=== PATIENT | female | born 1950 | race Caucasian/White ===

== ENCOUNTER 2016-06-03 17:28 | Observation (INO) | payer OTHER ==
[~2016-06-03] VITALS: Ht 144.8 cm; Wt 69.0 kg
[~2016-06-03 17:28] MED LIST: ACID REDUCER 1150 MG PO; ADVAIR 250/501 DISK IH; ADVAIR HFA120 INHALA IH; ALTACE2.5 MG PO; AMLODIPINE BESYL5 MG PO; ASPIR-TRIN325 M1 PO; Aspirin PO; BACTRIM,SEPT1 TABLET PO; BENICAR; BENICAR40 MG PO; CALCIUM 500 MG1 EACH PO; CILOSTAZOL100 MG PO; CILOSTAZOL50 MG PO; CLEOCIN150 MG PO; CLEOCIN300 MG PO; COLACE100 MG PO; COUMADIN5 MG PO; CRESTOR20 MG PO; CYCLOBENZAPRINE10 MG PO; DOCUSATE SODIU100 MG PO; ECOTRIN325 MG PO; ERGOCALCIF50000 UNIT PO; FAMOTIDINE20 MG PO; FLEXERIL10 MG PO; FLONASE16 G1 BOTH NARES; GLUCAGON1 MG IM; GLUCOSAMINE1000 MG PO; LATANOPROST2.5 ML BOTH EYES; LEVEMIR FL100 UNIT/1 SC; LEVEMIR FL100 UNITS/ PO; LEVEMIR FL100 UNITS/ SC; LEVEMIR100 UNIT/2 SC; LIPITOR20 MG PO; LISINOPRIL10 MG PO; LITE COAT ASPI325 M1 PO; METOPROLOL SUCC25 MG PO; MILK OF MAGNESI10 ML PO; MIRALAX255 GM PO; NITROSTAT0.4 MG SL; NOVOLOG 10100 UNITS/ SC; NOVOLOG PE100 UNITS/ SC; NOVOLOG100 UNIT/3 SQ; NYSTATIN-TRIAMC15 G1 TP; NYSTATIN-TRIAMC15 GM TP; OXYCODONE HCL10 MG PO; OXYCODONE HCL5 MG PO; PHILLIPS'400 MG/5 M PO; PLAVIX75 MG PO; PLETAL100 MG PO; POLYETHYLENE GL17 GM PO; PRAVASTATIN SOD80 MG PO; PROAIR HFA8.5 GM IH; PROMETHAZI25 MG/1 M2 IV; PROTONIX40 MG PO; RANITIDINE HCL150 MG PO; REGLAN10 MG PO; SANTYL30 GM TP; SINGULAIR10 MG PO; SYMBICORT60 INHALAT IH; TOPROL XL6.25 MG PO; TRAMADOL HCL50 MG PO; TRAVATAN Z5 ML BOTH EYES; TRESIBA FL100 UNIT/1 SC; TRULICITY1.5 MG/0.5 SQ; Tylenol Regular Stre PO; ULTRAM50 MG PO; VENTOLIN HFA18 GM IH; VITAMIN D250000 UNIT PO; ZANTAC150 MG PO; ZANTAC75 M1 PO; ZESTRIL,PRINIVI10 M1 PO; crestor; metoprolol
[2016-06-03 18:06] LABS: POINT-OF-CARE METER ID UU13113778
[2016-06-03 18:48] LABS: HEMATOCRIT 36.5 % (36.0-46.0); MCH 26.9 PG (29.0-34.0); MCHC 33.2 G/DL (30.0-36.0); MCV 81.1 FL (83-99); MEAN PLAT.VOLUME 10.7 uM^3 (9.5-12.4); PLATELET COUNT 474 K/uL (156-360); RBC DIS.WIDTH-CV 16.1 % (11.8-14.6); WHITE BLOOD COUNT 17.6 K/uL (4.1-10.2)
[2016-06-03 19:00] LABS: CHLORIDE 102 mEq/L (99-109); POTASSIUM 5.1 mEq/L (3.7-5.4); SODIUM 139 mEq/L (136-147)
[2016-06-03 19:02] LABS: GLUCOSE 147 mg/dL (70-99)
[2016-06-03 19:03] LABS: ANION GAP 15 MEQ/L (2-14)
[2016-06-03 19:06] LABS: GFR ESTIMATE (CALCULATED) 25 mL/min/
[2016-06-03 19:07] LABS: UREA NITROGEN (BUN) 33 mg/dL (9-23)
[2016-06-03 20:16] LABS: ADD MIUA? YES; BILIRUBIN NEGATIVE; BLOOD TRACE; COLOR YELLOW ((YELLOW)); GLUCOSE (STRIP) NEGATIVE; KETONES NEGATIVE; LEUKOCYTES NEGATIVE; NITRITE NEGATIVE; PROTEIN (STRIP) 30; SPECIFIC GRAVITY 1.028 (1.000-1.030); UROBILINOGEN 0.2 MG/DL (0.2-1.0)
[2016-06-03 20:43] LABS: CASTS PRESENT /LPF; EPITHELIAL CELLS 2+ /HPF; HYALINE CASTS 0-5 /LPF; MUCUS NONE SEEN /LPF
[2016-06-03 20:44] LABS: BACTERIA 1+ /HPF; RED BLOOD CELLS NONE SEEN /HPF (0-5); UCUL ADDED? NO; WHITE BLOOD CELLS 0-5 /HPF (0-5)
[2016-06-03] MEDS ORDERED: FLEXERIL10 MG PO (21:49)
[2016-06-03] MEDS ORDERED: CALCIUM600 M1 PO (21:51)
[2016-06-03] MEDS ORDERED: MIRALAX255 GM PO (21:53)
[2016-06-03] MEDS ORDERED: ZANTAC150 MG PO (21:54)
[2016-06-03] MEDS ORDERED: NOVOLOG 10100 UNITS/ SC (21:58)
[2016-06-03] MEDS ORDERED: VITAMIN D31000 UNI2 PO (21:58)
[2016-06-03] MEDS ORDERED: GLUCOSAMINE S1000 M3 PO (21:59)
[2016-06-04 00:46] VITALS: BP 133/62
[2016-06-04 04:11] VITALS: BP 125/56
[2016-06-04 09:01] LABS: ANION GAP 5 MEQ/L (2-14); CHLORIDE 108 MEQ/L (99-109); GLUCOSE 135 mg/dL (70-99); POTASSIUM 4.3 MEQ/L (3.7-5.4); SAMPLE HEMOLYSIS CHECK 0; SAMPLE ICTERIC CHECK 0; SAMPLE LIPEMIA CHECK 0; SODIUM 138 MEQ/L (136-147); UREA NITROGEN (BUN) 27 mg/dL (9-23)
[2016-06-04 09:02] LABS: GFR ESTIMATE (CALCULATED) 44 mL/min/
[2016-06-04 09:08] VITALS: BP 78/49
[2016-06-04 09:15] LABS: HEMATOCRIT 30.9 % (36.0-46.0); MCH 26.2 PG (29.0-34.0); MCHC 31.7 G/DL (30.0-36.0); MCV 82.6 FL (83-99); MEAN PLAT.VOLUME 10.4 uM^3 (9.5-12.4); PLATELET COUNT 348 K/uL (156-360); RBC DIS.WIDTH-CV 16.4 % (11.8-14.6); RBC DIS.WIDTH-SD 49.4 % (39-53); RED BLOOD COUNT 3.74 M/uL (3.80-5.20)
[2016-06-04 09:18] LABS: WHITE BLOOD COUNT 9.1 K/uL (4.1-10.2)
[2016-06-04 10:58] VITALS: BP 77/35
[2016-06-04 11:01] VITALS: BP 140/63
[2016-06-04 16:12] VITALS: BP 127/80
[2016-06-04] MEDS ORDERED: CIPROFLOXACIN500 M1 PO (17:26)
[2016-06-04 17:51] LABS: POINT-OF-CARE METER ID UU13113831
== END 2016-06-04 18:17 | disposition home or self-care (01) ==
LOC: EME 17:28 → EDOF 21:24 → 5WEST 21:24
PROVIDERS: Internal Medicine
DX: E86.0 Dehydration (principal); R11.2 Nausea with vomiting, unspecified; K52.9 Noninfective gastroenteritis and colitis, unspecified; D72.829 Elevated white blood cell count, unspecified; N17.9 Acute kidney failure, unspecified; I25.10 Atherosclerotic heart disease of native coronary artery without angina pectoris; Z95.5 Presence of coronary angioplasty implant and graft; E11.9 Type 2 diabetes mellitus without complications; I73.9 Peripheral vascular disease, unspecified; Z95.1 Presence of aortocoronary bypass graft; I10 Essential (primary) hypertension; J44.9 Chronic obstructive pulmonary disease, unspecified; E66.9 Obesity, unspecified; Z68.32 Body mass index [BMI] 32.0-32.9, adult; Z86.73 Personal history of transient ischemic attack (TIA), and cerebral infarction without residual deficits; Z98.890 Other specified postprocedural states; Z82.3 Family history of stroke; Z82.49 Family history of ischemic heart disease and other diseases of the circulatory system; Z83.3 Family history of diabetes mellitus; F17.200 Nicotine dependence, unspecified, uncomplicated; Z88.1 Allergy status to other antibiotic agents; Z88.8 Allergy status to other drugs, medicaments and biological substances
CPT/HCPCS: 71020; 80048; 81003; 82948; 83605; 85027; 87040; 87086; 87502; 93005; 93306; 93931; 99281; 99285; G0378; J0744; J1644; J1815; J7030; S0030

== ENCOUNTER 2017-02-22 23:50 | Inpatient (IN) | payer OTHER ==
[~2017-02-22] VITALS: Ht 144.8 cm; Wt 71.1 kg
[~2017-02-22 23:50] MED LIST changes: +CALCIUM600 M1 PO; +CIPROFLOXACIN500 M1 PO; +GLUCOSAMINE S1000 M3 PO; +VITAMIN D31000 UNI2 PO
[2017-02-23 00:55] LABS: BASOPHIL COUNT 0.1 K/uL (0-0.1); EOSINOPHIL (%) 0.8 % (0-5); EOSINOPHIL COUNT 0.2 K/uL (0-0.3); IMMATURE GRANULOCYTE (%) 0.8 % (0.0-0.7); IMMATURE GRANULOCYTE COUNT 0.3 K/uL; INSTRUMENT ABS NEUTROPHIL CT 28.1 K/uL; LYMPHOCYTE COUNT 0.7 K/uL (1.0-2.8); MEAN PLAT.VOLUME 9.9 uM^3 (9.5-12.4); MONOCYTE (%) 4.4 % (3-12); MONOCYTE COUNT 1.4 K/uL (0-0.8); NEUTROPHIL (%) 91.5 % (45-76); NEUTROPHIL COUNT 28.1 K/uL (1.8-6.4); PLATELET COUNT 386 K/uL (156-360)
[2017-02-23 01:02] LABS: HEMATOCRIT 28.3 % (36.0-46.0); MCH 26.5 PG (29.0-34.0); MCHC 31.4 G/DL (30.0-36.0); MCV 84.2 FL (83-99); RBC DIS.WIDTH-CV 15.2 % (11.8-14.6); RBC DIS.WIDTH-SD 46.7 % (39-53); RED BLOOD COUNT 3.36 M/uL (3.80-5.20); WHITE BLOOD COUNT 31.6 K/uL (4.1-10.2)
[2017-02-23 01:08] LABS: CHLORIDE 106 mEq/L (99-109); SODIUM 143 mEq/L (136-147)
[2017-02-23 01:11] LABS: GLUCOSE 150 mg/dL (70-99)
[2017-02-23 01:12] LABS: ANION GAP 13 MEQ/L (2-14)
[2017-02-23 01:13] LABS: TOTAL BILIRUBIN 0.3 mg/dL (0.0-1.0)
[2017-02-23 01:14] LABS: ALKALINE PHOSPHATASE 67 IU/L (3-129)
[2017-02-23 01:15] LABS: GFR ESTIMATE (CALCULATED) 44 mL/min/
[2017-02-23 01:16] LABS: DIRECT BILIRUBIN 0.1 mg/dL (0.0-0.3); UREA NITROGEN (BUN) 23 mg/dL (9-23)
[2017-02-23 01:18] LABS: LIPASE 7 U/L (1.0-51.0)
[2017-02-23 07:15] VITALS: BP 122/56
[2017-02-23 08:11] LABS: POINT-OF-CARE METER ID UU14174216; POINT-OF-CARE USER ID ENVKC36
[2017-02-23 11:36] LABS: POINT-OF-CARE METER ID UU13113698; POINT-OF-CARE USER ID ENVKC36
[2017-02-23 12:00] VITALS: BP 119/53
[2017-02-23] MEDS ORDERED: PRAVACHOL80 MG PO (15:34)
[2017-02-23 16:00] VITALS: BP 135/61
[2017-02-23 16:09] LABS: HEMATOCRIT 25.9 % (36.0-46.0); MCH 26.5 PG (29.0-34.0); MCHC 31.3 G/DL (30.0-36.0); MCV 84.6 FL (83-99); MEAN PLAT.VOLUME 10.3 uM^3 (9.5-12.4); PLATELET COUNT 347 K/uL (156-360); RBC DIS.WIDTH-CV 15.6 % (11.8-14.6); RBC DIS.WIDTH-SD 47.8 % (39-53); RED BLOOD COUNT 3.06 M/uL (3.80-5.20); WHITE BLOOD COUNT 15.9 K/uL (4.1-10.2)
[2017-02-23] MEDS ORDERED: ALLERGY RELIE15.8 ML BOTH NARES (16:09)
[2017-02-23] MEDS ORDERED: MILK OF MAGN PO (16:10)
[2017-02-23] MEDS ORDERED: REGLAN10 MG PO (16:10)
[2017-02-23 16:33] LABS: ANION GAP 9 MEQ/L (2-14); CHLORIDE 110 MEQ/L (99-109); GFR ESTIMATE (CALCULATED) > 59 mL/min/; GLUCOSE 172 mg/dL (70-99); SAMPLE HEMOLYSIS CHECK 0; SAMPLE ICTERIC CHECK 0; SAMPLE LIPEMIA CHECK 0; SODIUM 140 MEQ/L (136-147); UREA NITROGEN (BUN) 20 mg/dL (9-23)
[2017-02-23 16:40] LABS: POINT-OF-CARE METER ID UU13113698; POINT-OF-CARE USER ID ENVKC36
[2017-02-23 19:00] VITALS: BP 134/75
[2017-02-23 21:09] LABS: POINT-OF-CARE METER ID UU13113781
[2017-02-23 22:18] LABS: C DIFF TOXIN NEGATIVE (NEGATIVE)
[2017-02-23 22:20] LABS: PROBE CHECK PASS; SPECIMEN PROCESSING CONTROL PASS
[2017-02-23 23:30] VITALS: BP 142/86
[2017-02-24] VITALS (8 sets, daily range): BP systolic 106–140; BP diastolic 50–80
[2017-02-24 05:25] LABS: HEMATOCRIT 26.2 % (36.0-46.0); MCH 26.5 PG (29.0-34.0); MCHC 30.9 G/DL (30.0-36.0); MCV 85.6 FL (83-99); MEAN PLAT.VOLUME 10.5 uM^3 (9.5-12.4); PLATELET COUNT 359 K/uL (156-360); RBC DIS.WIDTH-CV 15.8 % (11.8-14.6); RBC DIS.WIDTH-SD 49.1 % (39-53); RED BLOOD COUNT 3.06 M/uL (3.80-5.20); WHITE BLOOD COUNT 11.5 K/uL (4.1-10.2)
[2017-02-24 06:00] LABS: ANION GAP 9 MEQ/L (2-14); CHLORIDE 109 MEQ/L (99-109); GFR ESTIMATE (CALCULATED) > 59 mL/min/; POTASSIUM 4.1 MEQ/L (3.7-5.4); SAMPLE HEMOLYSIS CHECK 0; SAMPLE ICTERIC CHECK 0; SAMPLE LIPEMIA CHECK 0; SODIUM 141 MEQ/L (136-147); UREA NITROGEN (BUN) 14 mg/dL (9-23)
[2017-02-24 06:10] LABS: GLUCOSE 75 mg/dL (70-99)
[2017-02-24 07:45] LABS: POINT-OF-CARE METER ID UU13113781
[2017-02-24 11:20] LABS: POINT-OF-CARE METER ID UU13113781
[2017-02-24 11:36] LABS: BASE EXCESS -9.1 mEq/L (-3 to +3); BICARBONATE 15.8 mEq/L (22-26); CARBOXY HGB 1.5 % (0-5); COMMENTS - BLOOD GASES A+C+; DEVICE NC; METHEMOGLOBIN 1.4 % (0-1.5); O2 FLOW 2 L/MIN; PCO2 30 mm Hg (35-45); PO2 63 mm Hg (80-100); SITE RR; pH 7.33 (7.35-7.45)
[2017-02-24 16:19] LABS: POINT-OF-CARE METER ID UU13113698
[2017-02-24 21:14] LABS: POINT-OF-CARE METER ID UU14174216
[2017-02-25 03:30] VITALS: BP 111/61
[2017-02-25 05:05] LABS: RED BLOOD COUNT 3.11 M/uL (3.80-5.20); WHITE BLOOD COUNT 9.8 K/uL (4.1-10.2)
[2017-02-25 05:06] LABS: HEMATOCRIT 26.1 % (36.0-46.0); MCH 25.7 PG (29.0-34.0); MCHC 30.7 G/DL (30.0-36.0); MCV 83.9 FL (83-99); MEAN PLAT.VOLUME 11.2 uM^3 (9.5-12.4); PLATELET COUNT 316 K/uL (156-360); RBC DIS.WIDTH-CV 15.8 % (11.8-14.6); RBC DIS.WIDTH-SD 48.4 % (39-53)
[2017-02-25 05:19] LABS: CHLORIDE 107 mEq/L (99-109); POTASSIUM 4.5 mEq/L (3.7-5.4); SODIUM 137 mEq/L (136-147)
[2017-02-25 05:23] LABS: ANION GAP 11 MEQ/L (2-14)
[2017-02-25 05:25] LABS: GFR ESTIMATE (CALCULATED) 48 mL/min/; GLUCOSE 401 mg/dL (70-99)
[2017-02-25 05:26] LABS: UREA NITROGEN (BUN) 15 mg/dL (9-23)
[2017-02-25 07:18] VITALS: BP 116/74
[2017-02-25 07:57] LABS: POINT-OF-CARE METER ID UU14174216
[2017-02-25 11:38] LABS: POINT-OF-CARE METER ID UU13113698
[2017-02-25 12:14] VITALS: BP 122/59
[2017-02-25 15:25] VITALS: BP 153/67
[2017-02-25 16:57] LABS: POINT-OF-CARE METER ID UU13113698; POINT-OF-CARE USER ID ENVKC36
[2017-02-25 19:00] VITALS: BP 111/65
[2017-02-25 20:51] LABS: POINT-OF-CARE METER ID UU14314088
[2017-02-26] VITALS (10 sets, daily range): BP systolic 101–168; BP diastolic 49–71
[2017-02-26 05:40] LABS: HEMATOCRIT 25.1 % (36.0-46.0); MCH 26.5 PG (29.0-34.0); MCHC 31.9 G/DL (30.0-36.0); MCV 83.1 FL (83-99); PLATELET COUNT 373 K/uL (156-360); RBC DIS.WIDTH-CV 15.7 % (11.8-14.6); RBC DIS.WIDTH-SD 47.4 % (39-53); RED BLOOD COUNT 3.02 M/uL (3.80-5.20); WHITE BLOOD COUNT 17.3 K/uL (4.1-10.2)
[2017-02-26 06:44] LABS: ANION GAP 9 MEQ/L (2-14); CHLORIDE 107 MEQ/L (99-109); GFR ESTIMATE (CALCULATED) 48 mL/min/; POTASSIUM 3.9 MEQ/L (3.7-5.4); SAMPLE HEMOLYSIS CHECK 0; SAMPLE ICTERIC CHECK 0; SAMPLE LIPEMIA CHECK 0; SODIUM 140 MEQ/L (136-147); UREA NITROGEN (BUN) 20 mg/dL (9-23)
[2017-02-26 06:48] LABS: GLUCOSE 140 mg/dL (70-99)
[2017-02-26 07:38] LABS: POINT-OF-CARE METER ID UU14174216
[2017-02-26 12:02] LABS: POINT-OF-CARE METER ID UU13113781
[2017-02-26 15:53] LABS: POINT-OF-CARE METER ID UU13113781
[2017-02-26 21:16] LABS: POINT-OF-CARE METER ID UU13113698
[2017-02-27 00:07] VITALS: BP 134/78
[2017-02-27 04:30] VITALS: BP 139/76
[2017-02-27 05:48] LABS: HEMATOCRIT 32.4 % (36.0-46.0); MCH 26.2 PG (29.0-34.0); MCHC 31.5 G/DL (30.0-36.0); MCV 83.3 FL (83-99); MEAN PLAT.VOLUME 11.1 uM^3 (9.5-12.4); PLATELET COUNT 447 K/uL (156-360); RBC DIS.WIDTH-CV 15.8 % (11.8-14.6); RBC DIS.WIDTH-SD 47.8 % (39-53); WHITE BLOOD COUNT 16.6 K/uL (4.1-10.2)
[2017-02-27 05:49] LABS: RED BLOOD COUNT 3.89 M/uL (3.80-5.20)
[2017-02-27 06:09] LABS: ANION GAP 11 MEQ/L (2-14); CHLORIDE 103 MEQ/L (99-109); GFR ESTIMATE (CALCULATED) 37 mL/min/; POTASSIUM 3.6 MEQ/L (3.7-5.4); SAMPLE HEMOLYSIS CHECK 0; SAMPLE ICTERIC CHECK 0; SAMPLE LIPEMIA CHECK 0; SODIUM 138 MEQ/L (136-147)
[2017-02-27 06:10] LABS: GLUCOSE 53 mg/dL (70-99); UREA NITROGEN (BUN) 32 mg/dL (9-23)
[2017-02-27 08:11] LABS: POINT-OF-CARE METER ID UU14314088; POINT-OF-CARE USER ID NUTSLF44
[2017-02-27 09:28] VITALS: BP 122/71
[2017-02-27 12:01] LABS: POINT-OF-CARE METER ID UU14314088; POINT-OF-CARE USER ID NUTSLF44
[2017-02-27 12:04] VITALS: BP 130/65
[2017-02-27 17:02] LABS: POINT-OF-CARE METER ID UU14314088; POINT-OF-CARE USER ID NUTSLF44
[2017-02-27 19:10] VITALS: BP 124/71
[2017-02-27 21:33] LABS: POINT-OF-CARE METER ID UU13113698
[2017-02-28] VITALS (7 sets, daily range): BP systolic 120–130; BP diastolic 69–87
[2017-02-28 05:53] LABS: HEMATOCRIT 33.3 % (36.0-46.0); MCH 25.9 PG (29.0-34.0); MCHC 31.5 G/DL (30.0-36.0); MCV 82.2 FL (83-99); MEAN PLAT.VOLUME 11.1 uM^3 (9.5-12.4); PLATELET COUNT 456 K/uL (156-360); RBC DIS.WIDTH-CV 16.1 % (11.8-14.6); RBC DIS.WIDTH-SD 48.7 % (39-53); RED BLOOD COUNT 4.05 M/uL (3.80-5.20); WHITE BLOOD COUNT 12.2 K/uL (4.1-10.2)
[2017-02-28 06:45] LABS: ANION GAP 10 MEQ/L (2-14); CHLORIDE 106 MEQ/L (99-109); GFR ESTIMATE (CALCULATED) 53 mL/min/; GLUCOSE 65 mg/dL (70-99); POTASSIUM 3.4 MEQ/L (3.7-5.4); SAMPLE HEMOLYSIS CHECK 0; SAMPLE ICTERIC CHECK 0; SAMPLE LIPEMIA CHECK 0; SODIUM 140 MEQ/L (136-147); UREA NITROGEN (BUN) 32 mg/dL (9-23)
[2017-02-28 08:40] LABS: POINT-OF-CARE METER ID UU13113698; POINT-OF-CARE USER ID ADMMNS
[2017-02-28 11:40] LABS: POINT-OF-CARE METER ID UU13113698
[2017-02-28 16:27] LABS: POINT-OF-CARE METER ID UU13113698
[2017-02-28 20:54] LABS: POINT-OF-CARE METER ID UU14174216
[2017-02-28 22:25] LABS: POINT-OF-CARE METER ID UU13113698
[2017-03-01 03:51] VITALS: BP 103/73
[2017-03-01 05:57] LABS: POINT-OF-CARE METER ID UU14174216
[2017-03-01 06:06] LABS: ANION GAP 7 MEQ/L (2-14); CHLORIDE 105 MEQ/L (99-109); GFR ESTIMATE (CALCULATED) 53 mL/min/; SAMPLE HEMOLYSIS CHECK 0; SAMPLE ICTERIC CHECK 0; SAMPLE LIPEMIA CHECK 0; SODIUM 140 MEQ/L (136-147); UREA NITROGEN (BUN) 26 mg/dL (9-23)
[2017-03-01 06:10] LABS: GLUCOSE 163 mg/dL (70-99); POTASSIUM 4.1 MEQ/L (3.7-5.4)
[2017-03-01 07:02] VITALS: BP 119/65
[2017-03-01 08:20] LABS: POINT-OF-CARE METER ID UU13113781
[2017-03-01] MEDS ORDERED: SPIRIVA RESPIMAT4 GM IH (10:02)
[2017-03-01] MEDS ORDERED: DUONEB 2.5-0.5 M3 ML AEROSOL (10:02)
[2017-03-01] MEDS ORDERED: NICOTINE PATCH1 EAC1 TD (10:03)
[2017-03-01] MEDS ORDERED: CARVEDILOL12.5 MG PO (10:03)
[2017-03-01] MEDS ORDERED: FUROSEMIDE20 MG PO (10:06)
[2017-03-01] MEDS ORDERED: PREDNISONE10 MG PO (10:08)
[2017-03-01 10:30] VITALS: BP 134/60
[2017-03-01 11:49] LABS: POINT-OF-CARE METER ID UU13113781
[2017-03-01 15:12] VITALS: BP 124/58
[2017-03-01 16:18] LABS: POINT-OF-CARE METER ID UU13113781
[2017-03-23] MEDS ORDERED: SPIRIVA1 INHALATI IH (13:32)
[2017-03-23] MEDS ORDERED: NICOTINE PATCH1 EAC1 TD (13:33)
[2017-03-23] MEDS ORDERED: CARVEDILOL12.5 MG PO (13:34)
[2017-03-23] MEDS ORDERED: FUROSEMIDE20 MG PO (13:35)
== END 2017-03-01 18:12 | DRG 871 ==
LOC: EME → EDBD 23:50 → EME 23:50 → 4EAST 02-23 05:40 → EDOF 02-23 05:40 → ENRESERV 02-23 05:42 → 4EAST 02-23 07:12 → ENPENDDIS 03-01 18:00 → 4EAST 03-01 18:12
PROVIDERS: Emergency Medicine; Family Medicine; Hospitalist; Internal Medicine
PROC: 30233N1 Transfusion of Nonautologous Red Blood Cells into Peripheral Vein, Percutaneous Approach (ICD-10-PCS; principal; 2017-02-26)
DX: A41.9 Sepsis, unspecified organism (principal); A04.9 Bacterial intestinal infection, unspecified; N17.9 Acute kidney failure, unspecified; J44.0 Chronic obstructive pulmonary disease with (acute) lower respiratory infection; J20.9 Acute bronchitis, unspecified; J44.1 Chronic obstructive pulmonary disease with (acute) exacerbation; E87.2 Acidosis; E86.0 Dehydration; I11.0 Hypertensive heart disease with heart failure; I50.21 Acute systolic (congestive) heart failure; I25.5 Ischemic cardiomyopathy; D63.8 Anemia in other chronic diseases classified elsewhere; E11.51 Type 2 diabetes mellitus with diabetic peripheral angiopathy without gangrene; I25.10 Atherosclerotic heart disease of native coronary artery without angina pectoris; E11.649 Type 2 diabetes mellitus with hypoglycemia without coma; I69.328 Other speech and language deficits following cerebral infarction; R47.81 Slurred speech; I95.9 Hypotension, unspecified; R00.0 Tachycardia, unspecified; R20.0 Anesthesia of skin; G43.909 Migraine, unspecified, not intractable, without status migrainosus; K21.9 Gastro-esophageal reflux disease without esophagitis; E78.5 Hyperlipidemia, unspecified; F17.200 Nicotine dependence, unspecified, uncomplicated; E66.9 Obesity, unspecified; Z68.32 Body mass index [BMI] 32.0-32.9, adult; Z79.4 Long term (current) use of insulin; I25.2 Old myocardial infarction; Z79.51 Long term (current) use of inhaled steroids; Z82.49 Family history of ischemic heart disease and other diseases of the circulatory system; Z83.3 Family history of diabetes mellitus; Z95.1 Presence of aortocoronary bypass graft; Z95.5 Presence of coronary angioplasty implant and graft
CPT/HCPCS: 36600; 71010; 74176; 80048; 80048 91; 80076; 81003; 82803; 82948; 83605; 83690; 83880; 85025; 85027; 86850; 86900; 86901; 86920; 87040; 87493; 87502; 87506; 90686; 93005; 93306; 94640; 94640 76; 94667; 94668; 94760; 94799; 97530 GP; 99202; 99281; 99285; J1644; J1815; J1940; J1956; J2405; J2930; J7030; J7512; P9016; S0028; S0030

== ENCOUNTER 2017-03-25 09:38 | Day surgery (SDC) | payer OTHER ==
[~2017-03-25] VITALS: Ht 149.9 cm; Wt 62.1 kg
[~2017-03-25 09:38] MED LIST changes: +ALLERGY RELIE15.8 ML BOTH NARES; +CARVEDILOL12.5 MG PO; +DUONEB 2.5-0.5 M3 ML AEROSOL; +FUROSEMIDE20 MG PO; +MILK OF MAGN PO; +NICOTINE PATCH1 EAC1 TD; +PRAVACHOL80 MG PO; +PREDNISONE10 MG PO; +SPIRIVA RESPIMAT4 GM IH; +SPIRIVA1 INHALATI IH
[2017-03-25] MEDS ORDERED: ASPIRIN81 M2 PO (10:12)
[2017-03-25 10:30] LABS: POINT-OF-CARE METER ID UU13113696
== END 2017-03-25 18:15 ==
LOC: CATH 09:38
PROVIDERS: Internal Medicine Cardiovascular Disease
DX: I25.10 Atherosclerotic heart disease of native coronary artery without angina pectoris (principal); I25.82 Chronic total occlusion of coronary artery; I65.22 Occlusion and stenosis of left carotid artery; I70.92 Chronic total occlusion of artery of the extremities; T82.858A Stenosis of other vascular prosthetic devices, implants and grafts, initial encounter; T82.898A Other specified complication of vascular prosthetic devices, implants and grafts, initial encounter; I25.2 Old myocardial infarction; I42.0 Dilated cardiomyopathy; I25.5 Ischemic cardiomyopathy; I10 Essential (primary) hypertension; E78.2 Mixed hyperlipidemia; E11.9 Type 2 diabetes mellitus without complications; Z87.891 Personal history of nicotine dependence; Z88.1 Allergy status to other antibiotic agents; Z79.82 Long term (current) use of aspirin; Z79.4 Long term (current) use of insulin
CPT/HCPCS: 82948; C1750; C1769; C1887; C1894; J1644; J2250; J3010; J7040

== ENCOUNTER 2017-04-13 12:03 | Emergency (ER) | payer OTHER ==
[~2017-04-13] VITALS: Ht 144.8 cm; Wt 64.4 kg
[~2017-04-13 12:03] MED LIST changes: +ASPIRIN81 M2 PO
[2017-04-13 15:35] LABS: HEMATOCRIT 35.2 % (36.0-46.0); HEMOGLOBIN 11.4 G/DL (11.9-15.5); MCH 26.8 PG (29.0-34.0); MCHC 32.4 G/DL (30.0-36.0); MCV 82.6 FL (83-99); PLATELET COUNT 292 K/uL (156-360); RBC DIS.WIDTH-CV 18.6 % (11.8-14.6); RBC DIS.WIDTH-SD 55.9 % (39-53); RED BLOOD COUNT 4.26 M/uL (3.80-5.20); WHITE BLOOD COUNT 7.6 K/uL (4.1-10.2)
[2017-04-13 15:42] LABS: CHLORIDE 100 mEq/L (99-109); POTASSIUM 4.1 mEq/L (3.7-5.4); SODIUM 137 mEq/L (136-147)
[2017-04-13 15:43] LABS: PTT 29.6 SEC (25-37)
[2017-04-13 15:44] LABS: GLUCOSE 304 mg/dL (70-99)
[2017-04-13 15:48] LABS: CREATININE 1.1 mg/dL (0.6-1.3); GFR ESTIMATE (CALCULATED) 53 mL/min/; UREA NITROGEN (BUN) 17 mg/dL (9-23)
[2017-04-13 16:35] LABS: APPEARANCE CLEAR ((CLEAR)); BILIRUBIN NEGATIVE; BLOOD NEGATIVE; COLOR STRAW ((YELLOW)); GLUCOSE (STRIP) 50; KETONES NEGATIVE; LEUKOCYTES SMALL; NITRITE NEGATIVE; PROTEIN (STRIP) NEGATIVE; UROBILINOGEN 0.2 MG/DL (0.2-1.0)
[2017-04-13 16:44] LABS: BACTERIA RARE /HPF; EPITHELIAL CELLS 1+ /HPF; HYALINE CASTS 0-5 /LPF; MUCUS TRACE /LPF; RED BLOOD CELLS 0-5 /HPF (0-5)
[2017-04-13 18:12] VITALS: BP 146/69
== END 2017-04-13 18:13 | disposition home or self-care (01) ==
LOC: EME 12:03
PROVIDERS: Nurse Practitioner Family
DX: E11.65 Type 2 diabetes mellitus with hyperglycemia (principal); D64.9 Anemia, unspecified; R03.1 Nonspecific low blood-pressure reading; J44.9 Chronic obstructive pulmonary disease, unspecified; I10 Essential (primary) hypertension; E78.5 Hyperlipidemia, unspecified; Z79.4 Long term (current) use of insulin; Z79.02 Long term (current) use of antithrombotics/antiplatelets; Z79.82 Long term (current) use of aspirin; Z95.1 Presence of aortocoronary bypass graft; Z86.73 Personal history of transient ischemic attack (TIA), and cerebral infarction without residual deficits; Z87.891 Personal history of nicotine dependence
CPT/HCPCS: 80048; 81003; 85027; 85610; 85730; 87086; 93005; 99281; 99284

== ENCOUNTER 2017-06-30 23:43 | Inpatient (IN) | payer OTHER ==
[~2017-06-30] VITALS: Ht 144.8 cm; Wt 56.0 kg
[2017-07-01 00:59] LABS: BASOPHIL (%) 0.2 % (0-1); EOSINOPHIL (%) 0.7 % (0-5); EOSINOPHIL COUNT 0.2 K/uL (0-0.3); HEMOGLOBIN 10.9 G/DL (11.9-15.5); IMMATURE GRANULOCYTE (%) 0.6 % (0.0-0.7); LYMPHOCYTE (%) 7.7 % (15-42); LYMPHOCYTE COUNT 1.8 K/uL (1.0-2.8); MCH 26.1 PG (29.0-34.0); MCHC 32.1 G/DL (30.0-36.0); MCV 81.3 FL (83-99); MONOCYTE (%) 6.4 % (3-12); MONOCYTE COUNT 1.5 K/uL (0-0.8); NEUTROPHIL (%) 84.4 % (45-76); NEUTROPHIL COUNT 19.9 K/uL (1.8-6.4); PLATELET COUNT 417 K/uL (156-360); RBC DIS.WIDTH-CV 14.7 % (11.8-14.6); RBC DIS.WIDTH-SD 43.7 % (39-53); RED BLOOD COUNT 4.18 M/uL (3.80-5.20); WHITE BLOOD COUNT 23.6 K/uL (4.1-10.2)
[2017-07-01 01:07] LABS: ALBUMIN 3.8 g/dL (3.2-4.8)
[2017-07-01 01:08] LABS: CHLORIDE 106 mEq/L (99-109); POTASSIUM 3.2 mEq/L (3.7-5.4); SODIUM 139 mEq/L (136-147)
[2017-07-01 01:10] LABS: TOTAL PROTEIN 7.1 g/dL (6.4-8.3)
[2017-07-01 01:11] LABS: CARBON DIOXIDE (BICARBONATE) 29.1 MEQ/L (20-31)
[2017-07-01 01:12] LABS: TOTAL BILIRUBIN 0.2 mg/dL (0.0-1.0)
[2017-07-01 01:13] LABS: ALKALINE PHOSPHATASE 82 IU/L (3-129)
[2017-07-01 01:14] LABS: CREATININE 0.8 mg/dL (0.6-1.3); GFR ESTIMATE (CALCULATED) > 59 mL/min/
[2017-07-01 01:15] LABS: AST (GOT) 20 IU/L (2-34); UREA NITROGEN (BUN) 15 mg/dL (9-23)
[2017-07-01 01:17] LABS: ALT (GPT) 12 IU/L (3-49); LIPASE 9 U/L (1.0-51.0)
[2017-07-01 01:20] LABS: TROP-I INTERPRETATION NEGATIVE; TROPONIN-I 0.02 ng/mL (0.0-0.30)
[2017-07-01 01:41] LABS: GLUCOSE 39 mg/dL (70-99)
[2017-07-01 02:23] LABS: APPEARANCE SL.HAZY ((CLEAR)); BILIRUBIN NEGATIVE; BLOOD TRACE; COLOR YELLOW ((YELLOW)); GLUCOSE (STRIP) 500; KETONES NEGATIVE; LEUKOCYTES MODERATE; NITRITE NEGATIVE; PROTEIN (STRIP) TRACE; SPECIFIC GRAVITY 1.005 (1.000-1.030); UROBILINOGEN 0.2 MG/DL (0.2-1.0)
[2017-07-01 02:38] LABS: BACTERIA 2+ /HPF; EPITHELIAL CELLS 1+ /HPF; MUCUS NONE SEEN /LPF; RED BLOOD CELLS 0-5 /HPF (0-5); UCUL ADDED? YES; WHITE BLOOD CELLS 20-30 /HPF (0-5)
[2017-07-01 04:45] LABS: BASE EXCESS -2.8 mEq/L (-3 to +3); BICARBONATE 21.8 mEq/L (22-26); CARBOXY HGB 1.3 % (0-5); COMMENTS - BLOOD GASES A+C+; FI02 21 %; PCO2 36 mm Hg (35-45); PO2 83 mm Hg (80-100); SITE RR; pH 7.39 (7.35-7.45)
[2017-07-01 07:20] VITALS: BP 117/57
[2017-07-01 07:34] LABS: MAGNESIUM 1.9 mg/dl (1.3-2.7); PHOSPHORUS 2.9 mg/dL (2.5-4.9)
[2017-07-01 07:38] LABS: TROP-I INTERPRETATION NEGATIVE; TROPONIN-I 0.02 ng/mL (0.0-0.30)
[2017-07-01] MEDS ORDERED: BREO ELLIPTA I1 EACH IH (09:15)
[2017-07-01] MEDS ORDERED: XALATAN2.5 ML BOTH EYES (09:16)
[2017-07-01] MEDS ORDERED: TRESIBA FL100 UNIT/1 SC (09:16)
[2017-07-01] MEDS ORDERED: NOVOLOG PE100 UNITS/ SC (11:55)
[2017-07-01 12:35] VITALS: BP 131/56
[2017-07-01 12:49] LABS: MAGNESIUM 1.9 mg/dl (1.3-2.7); PHOSPHORUS 2.2 mg/dL (2.5-4.9)
[2017-07-01 12:57] LABS: TROP-I INTERPRETATION NEGATIVE; TROPONIN-I 0.02 ng/mL (0.0-0.30)
[2017-07-01 14:24] LABS: HEMOGLOBIN A1c (GLYCOHEMOGLOB) 8.4 % (Below 5.7)
[2017-07-01 16:18] VITALS: BP 138/51
[2017-07-01 18:27] LABS: TROP-I INTERPRETATION NEGATIVE; TROPONIN-I 0.04 ng/mL (0.0-0.30)
[2017-07-01 18:29] LABS: MAGNESIUM 1.9 mg/dL (1.3-2.7)
[2017-07-01 19:35] VITALS: BP 138/74
[2017-07-01 23:48] VITALS: BP 130/65
[2017-07-02 01:22] LABS: PHOSPHORUS 2.8 mg/dL (2.5-4.9)
[2017-07-02 01:26] LABS: TROP-I INTERPRETATION NEGATIVE; TROPONIN-I 0.06 ng/mL (0.0-0.30)
[2017-07-02 03:47] VITALS: BP 144/76
[2017-07-02 06:17] LABS: BASOPHIL (%) 0.7 % (0-1); BASOPHIL COUNT 0.1 K/uL (0-0.1); EOSINOPHIL (%) 3.6 % (0-5); EOSINOPHIL COUNT 0.2 K/uL (0-0.3); HEMATOCRIT 29.8 % (36.0-46.0); HEMOGLOBIN 9.3 G/DL (11.9-15.5); IMMATURE GRANULOCYTE (%) 0.1 % (0.0-0.7); LYMPHOCYTE (%) 44.5 % (15-42); MCH 25.5 PG (29.0-34.0); MCHC 31.2 G/DL (30.0-36.0); MCV 81.9 FL (83-99); MONOCYTE (%) 8.4 % (3-12); MONOCYTE COUNT 0.6 K/uL (0-0.8); NEUTROPHIL (%) 42.7 % (45-76); NEUTROPHIL COUNT 2.9 K/uL (1.8-6.4); PLATELET COUNT 379 K/uL (156-360); RBC DIS.WIDTH-CV 14.8 % (11.8-14.6); RBC DIS.WIDTH-SD 44.5 % (39-53); RED BLOOD COUNT 3.64 M/uL (3.80-5.20); WHITE BLOOD COUNT 6.7 K/uL (4.1-10.2)
[2017-07-02 06:38] LABS: TROP-I INTERPRETATION NEGATIVE; TROPONIN-I 0.06 ng/mL (0.0-0.30)
[2017-07-02 06:39] LABS: CHLORIDE 106 MEQ/L (99-109); GFR ESTIMATE (CALCULATED) > 59 mL/min/; GLUCOSE 205 mg/dL (70-99); MAGNESIUM 1.8 mg/dl (1.3-2.7); POTASSIUM 4.6 MEQ/L (3.7-5.4); SODIUM 138 MEQ/L (136-147); UREA NITROGEN (BUN) 13 mg/dL (9-23)
[2017-07-02 08:04] VITALS: BP 132/58
[2017-07-02 11:35] VITALS: BP 128/58
[2017-07-02 12:33] LABS: TROP-I INTERPRETATION NEGATIVE; TROPONIN-I 0.04 ng/mL (0.0-0.30)
[2017-07-02 13:09] LABS: MAGNESIUM 1.7 mg/dl (1.3-2.7); PHOSPHORUS 3.3 mg/dL (2.5-4.9)
[2017-07-02 15:49] VITALS: BP 137/63
[2017-07-02 18:07] LABS: MAGNESIUM 1.9 mg/dl (1.3-2.7); PHOSPHORUS 3.4 mg/dL (2.5-4.9)
[2017-07-02 18:08] LABS: TROP-I INTERPRETATION NEGATIVE; TROPONIN-I 0.04 ng/mL (0.0-0.30)
[2017-07-03 00:47] VITALS: BP 128/60
[2017-07-03 07:05] VITALS: BP 124/58
[2017-07-03 07:43] LABS: BASOPHIL (%) 0.9 % (0-1); BASOPHIL COUNT 0.1 K/uL (0-0.1); EOSINOPHIL (%) 3.7 % (0-5); EOSINOPHIL COUNT 0.2 K/uL (0-0.3); HEMATOCRIT 31.4 % (36.0-46.0); HEMOGLOBIN 9.9 G/DL (11.9-15.5); IMMATURE GRANULOCYTE (%) 0.3 % (0.0-0.7); LYMPHOCYTE (%) 31.4 % (15-42); MCH 25.5 PG (29.0-34.0); MCHC 31.5 G/DL (30.0-36.0); MCV 80.9 FL (83-99); MONOCYTE (%) 9.8 % (3-12); MONOCYTE COUNT 0.6 K/uL (0-0.8); NEUTROPHIL (%) 53.9 % (45-76); NEUTROPHIL COUNT 3.5 K/uL (1.8-6.4); PLATELET COUNT 386 K/uL (156-360); RBC DIS.WIDTH-CV 14.6 % (11.8-14.6); RBC DIS.WIDTH-SD 42.9 % (39-53); RED BLOOD COUNT 3.88 M/uL (3.80-5.20); WHITE BLOOD COUNT 6.4 K/uL (4.1-10.2)
[2017-07-03 08:11] LABS: CHLORIDE 104 MEQ/L (99-109); GFR ESTIMATE (CALCULATED) > 59 mL/min/; GLUCOSE 144 mg/dL (70-99); POTASSIUM 4.2 MEQ/L (3.7-5.4); SODIUM 139 MEQ/L (136-147); UREA NITROGEN (BUN) 15 mg/dL (9-23)
[2017-07-03 12:01] VITALS: BP 125/60
[2017-07-03] MEDS ORDERED: TRESIBA FL100 UNIT/1 SC (13:06)
== END 2017-07-03 14:15 | disposition home or self-care (01) | DRG 690 ==
LOC: EME → EDBD 23:43 → 2EAST 07-01 02:56 → EDOF 07-01 02:56 → ENRESERV 07-01 02:58 → 2EAST 07-01 04:53
PROVIDERS: Emergency Medicine; Hospitalist; Internal Medicine
DX: N39.0 Urinary tract infection, site not specified (principal); E11.649 Type 2 diabetes mellitus with hypoglycemia without coma; E03.9 Hypothyroidism, unspecified; I73.9 Peripheral vascular disease, unspecified; I25.10 Atherosclerotic heart disease of native coronary artery without angina pectoris; I50.9 Heart failure, unspecified; I11.0 Hypertensive heart disease with heart failure; N30.90 Cystitis, unspecified without hematuria; K21.9 Gastro-esophageal reflux disease without esophagitis; R53.1 Weakness; R68.0 Hypothermia, not associated with low environmental temperature; E78.5 Hyperlipidemia, unspecified; Z95.1 Presence of aortocoronary bypass graft; Z88.1 Allergy status to other antibiotic agents; Z79.4 Long term (current) use of insulin; D72.829 Elevated white blood cell count, unspecified; J44.9 Chronic obstructive pulmonary disease, unspecified; Z79.899 Other long term (current) drug therapy; E11.51 Type 2 diabetes mellitus with diabetic peripheral angiopathy without gangrene
CPT/HCPCS: 36600; 71045; 80048; 80053; 81003; 82330; 82803; 82948; 83036; 83605; 83690; 83735; 84100; 84484; 85025; 85610; 87040; 87086; 87502; 94640; 94640 76; 99202; 99281; 99285; J0744; J1650; J1815; J7030; J7070

== ENCOUNTER 2017-08-03 01:25 | Inpatient (IN) | payer OTHER ==
[~2017-08-03] VITALS: Ht 144.8 cm; Wt 71.8 kg
[~2017-08-03 01:25] MED LIST changes: +BREO ELLIPTA I1 EACH IH; +XALATAN2.5 ML BOTH EYES
[2017-08-03 01:55] LABS: BASOPHIL (%) 0.4 % (0-1); EOSINOPHIL (%) 0.9 % (0-5); EOSINOPHIL COUNT 0.1 K/uL (0-0.3); HEMATOCRIT 28.4 % (36.0-46.0); HEMOGLOBIN 9.2 G/DL (11.9-15.5); IMMATURE GRANULOCYTE (%) 0.4 % (0.0-0.7); LYMPHOCYTE (%) 14.8 % (15-42); LYMPHOCYTE COUNT 1.4 K/uL (1.0-2.8); MCH 24.7 PG (29.0-34.0); MCHC 32.4 G/DL (30.0-36.0); MCV 76.3 FL (83-99); MONOCYTE (%) 7.6 % (3-12); MONOCYTE COUNT 0.7 K/uL (0-0.8); NEUTROPHIL (%) 75.9 % (45-76); NEUTROPHIL COUNT 7.3 K/uL (1.8-6.4); PLATELET COUNT 400 K/uL (156-360); RBC DIS.WIDTH-CV 15.5 % (11.8-14.6); RBC DIS.WIDTH-SD 42.6 % (39-53); RED BLOOD COUNT 3.72 M/uL (3.80-5.20); WHITE BLOOD COUNT 9.7 K/uL (4.1-10.2)
[2017-08-03 02:05] LABS: CHLORIDE 101 mEq/L (99-109); POTASSIUM 4.3 mEq/L (3.7-5.4); SODIUM 135 mEq/L (136-147)
[2017-08-03 02:07] LABS: GLUCOSE 384 mg/dL (70-99)
[2017-08-03 02:11] LABS: CREATININE 1.3 mg/dL (0.6-1.3); GFR ESTIMATE (CALCULATED) 44 mL/min/
[2017-08-03 02:12] LABS: UREA NITROGEN (BUN) 25 mg/dL (9-23)
[2017-08-03 02:17] LABS: TROP-I INTERPRETATION POSITIVE
[2017-08-03 03:17] LABS: TROPONIN-I 1.08 ng/mL (0.0-0.30)
[2017-08-03] MEDS ORDERED: CYCLOBENZAPRINE10 MG PO (04:45)
[2017-08-03] MEDS ORDERED: ZANTAC150 MG PO (04:48)
[2017-08-03] MEDS ORDERED: TRESIBA FL100 UNIT/1 SC (04:50)
[2017-08-03] MEDS ORDERED: CILOSTAZOL50 MG PO (04:50)
[2017-08-03] MEDS ORDERED: NITROSTAT0.4 MG SL (10:32)
[2017-08-03] MEDS ORDERED: PROVENTIL,2.5 MG/0.5 IH (10:35)
[2017-08-03] MEDS ORDERED: HUMALOG100 UNIT/1 SC (10:38)
[2017-08-03 10:39] LABS: TROP-I INTERPRETATION POSITIVE
[2017-08-03 10:42] LABS: TROPONIN-I 3.93 ng/mL (0.0-0.30)
[2017-08-03 11:01] LABS: HDL CHOLESTEROL 109 MG/DL (Desirable>=50); LDL CHOLESTEROL 74 mg/dL (Desirable<100); NON-HDL CHOLESTEROL 83 mg/dL (Desirable<160); TOTAL CHOLESTEROL 192 mg/dL (Desirable<200); TRIGLYCERIDES 47 MG/DL (Normal: <150)
[2017-08-03 14:10] LABS: HEMOGLOBIN A1c (GLYCOHEMOGLOB) 9.5 % (Below 5.7)
[2017-08-03 15:42] LABS: TROP-I INTERPRETATION POSITIVE
[2017-08-03 15:54] LABS: TROPONIN-I 4.51 ng/mL (0.0-0.30)
[2017-08-03 18:02] VITALS: BP 140/64
[2017-08-03 19:00] VITALS: BP 142/68
[2017-08-03 23:00] VITALS: BP 108/52
[2017-08-04 03:30] VITALS: BP 114/51
[2017-08-04 07:06] LABS: BASOPHIL (%) 0.8 % (0-1); BASOPHIL COUNT 0.1 K/uL (0-0.1); EOSINOPHIL (%) 2.1 % (0-5); EOSINOPHIL COUNT 0.2 K/uL (0-0.3); HEMATOCRIT 30.2 % (36.0-46.0); HEMOGLOBIN 9.4 G/DL (11.9-15.5); IMMATURE GRANULOCYTE (%) 0.2 % (0.0-0.7); LYMPHOCYTE (%) 33.4 % (15-42); LYMPHOCYTE COUNT 3.2 K/uL (1.0-2.8); MCH 24.2 PG (29.0-34.0); MCHC 31.1 G/DL (30.0-36.0); MCV 77.6 FL (83-99); MONOCYTE COUNT 0.8 K/uL (0-0.8); NEUTROPHIL (%) 55.5 % (45-76); NEUTROPHIL COUNT 5.4 K/uL (1.8-6.4); PLATELET COUNT 431 K/uL (156-360); RBC DIS.WIDTH-CV 15.8 % (11.8-14.6); RBC DIS.WIDTH-SD 43.7 % (39-53); RED BLOOD COUNT 3.89 M/uL (3.80-5.20); WHITE BLOOD COUNT 9.7 K/uL (4.1-10.2)
[2017-08-04 07:15] VITALS: BP 122/54
[2017-08-04 07:37] LABS: CHLORIDE 107 MEQ/L (99-109); POTASSIUM 4.4 MEQ/L (3.7-5.4)
[2017-08-04 07:42] LABS: CREATININE 0.9 MG/DL (0.6-1.3); GFR ESTIMATE (CALCULATED) > 59 mL/min/; SODIUM 142 MEQ/L (136-147); TROPONIN-I 2.86 ng/mL (0.0-0.30); UREA NITROGEN (BUN) 15 mg/dL (9-23)
[2017-08-04 07:43] LABS: TROP-I INTERPRETATION POSITIVE
[2017-08-04 07:44] LABS: GLUCOSE 57 mg/dL (70-99)
[2017-08-04 12:00] VITALS: BP 133/63
[2017-08-04 13:10] LABS: PTT 78.3 SEC (25-37)
[2017-08-04 15:56] VITALS: BP 139/62
[2017-08-04 19:07] LABS: PTT 66.5 SEC (25-37)
[2017-08-04 19:50] VITALS: BP 158/74
[2017-08-04 22:28] VITALS: BP 133/63
[2017-08-05 03:09] VITALS: BP 116/56
[2017-08-05 05:50] LABS: HEMATOCRIT 31.2 % (36.0-46.0); HEMOGLOBIN 9.5 G/DL (11.9-15.5); MCH 23.5 PG (29.0-34.0); MCHC 30.4 G/DL (30.0-36.0); PLATELET COUNT 444 K/uL (156-360); RBC DIS.WIDTH-CV 15.6 % (11.8-14.6); RBC DIS.WIDTH-SD 43.6 % (39-53); RED BLOOD COUNT 4.05 M/uL (3.80-5.20); WHITE BLOOD COUNT 8.4 K/uL (4.1-10.2)
[2017-08-05 06:20] LABS: CHLORIDE 104 MEQ/L (99-109); CREATININE 0.9 MG/DL (0.6-1.3); GFR ESTIMATE (CALCULATED) > 59 mL/min/; MAGNESIUM 2.2 mg/dl (1.3-2.7); POTASSIUM 4.4 MEQ/L (3.7-5.4); SODIUM 137 MEQ/L (136-147); UREA NITROGEN (BUN) 16 mg/dL (9-23)
[2017-08-05 06:22] LABS: GLUCOSE 86 mg/dL (70-99)
[2017-08-05 07:40] VITALS: BP 121/56
[2017-08-05 11:28] VITALS: BP 117/57
[2017-08-05 15:07] VITALS: BP 115/58
[2017-08-05 20:52] VITALS: BP 125/66
[2017-08-05 22:09] VITALS: BP 117/80
[2017-08-06 04:27] VITALS: BP 115/56
[2017-08-06 06:27] LABS: HEMATOCRIT 30.7 % (36.0-46.0); HEMOGLOBIN 9.6 G/DL (11.9-15.5); MCH 23.6 PG (29.0-34.0); MCHC 31.3 G/DL (30.0-36.0); MCV 75.6 FL (83-99); PLATELET COUNT 463 K/uL (156-360); RBC DIS.WIDTH-CV 15.7 % (11.8-14.6); RED BLOOD COUNT 4.06 M/uL (3.80-5.20); WHITE BLOOD COUNT 7.5 K/uL (4.1-10.2)
[2017-08-06 07:00] VITALS: BP 134/73
[2017-08-06] MEDS ORDERED: ASPIR-LOW81 MG PO (11:06)
[2017-08-06] MEDS ORDERED: LOSARTAN POTASS25 MG PO (11:06)
[2017-08-06] MEDS ORDERED: DUONEB 2.5-0.5 M3 ML AEROSOL (11:06)
[2017-08-06 11:15] VITALS: BP 130/75
== END 2017-08-06 16:35 | disposition home health service (06) | DRG 281 ==
LOC: EME → EDBD 01:25 → EDOF 04:05 → 4EAST 04:05 → ENRESERV 04:11 → 4EAST 17:30 → ENPENDDIS 08-06 15:00 → 4EAST 08-06 16:35
PROVIDERS: Emergency Medicine; Hospitalist; Internal Medicine; Internal Medicine Cardiovascular Disease; Physician Assistant Medical
DX: I25.10 Atherosclerotic heart disease of native coronary artery without angina pectoris (principal); I21.4 Non-ST elevation (NSTEMI) myocardial infarction; I50.22 Chronic systolic (congestive) heart failure; I11.0 Hypertensive heart disease with heart failure; E87.1 Hypo-osmolality and hyponatremia; E11.65 Type 2 diabetes mellitus with hyperglycemia; I82.B11 Acute embolism and thrombosis of right subclavian vein; I25.5 Ischemic cardiomyopathy; E11.51 Type 2 diabetes mellitus with diabetic peripheral angiopathy without gangrene; E78.5 Hyperlipidemia, unspecified; E66.9 Obesity, unspecified; Z68.34 Body mass index [BMI] 34.0-34.9, adult; R09.02 Hypoxemia; D64.9 Anemia, unspecified; I49.3 Ventricular premature depolarization; I70.209 Unspecified atherosclerosis of native arteries of extremities, unspecified extremity; J43.9 Emphysema, unspecified; H40.9 Unspecified glaucoma; H91.92 Unspecified hearing loss, left ear; Z83.3 Family history of diabetes mellitus; Z79.02 Long term (current) use of antithrombotics/antiplatelets; Z87.891 Personal history of nicotine dependence; Z79.82 Long term (current) use of aspirin; Z79.4 Long term (current) use of insulin; Z95.1 Presence of aortocoronary bypass graft; Z82.5 Family history of asthma and other chronic lower respiratory diseases; Z86.73 Personal history of transient ischemic attack (TIA), and cerebral infarction without residual deficits; Z82.49 Family history of ischemic heart disease and other diseases of the circulatory system; Z86.718 Personal history of other venous thrombosis and embolism; Z91.11 Patient's noncompliance with dietary regimen; Z82.3 Family history of stroke; I25.2 Old myocardial infarction
CPT/HCPCS: 71045; 80048; 80061; 82948; 83036; 83735; 84484; 85025; 85027; 85610; 85730; 93005; 93306; 94640; 94640 76; 94760; 99202; 99281; 99285; J1815; J2250; J7030

== ENCOUNTER 2017-10-25 22:00 | Inpatient (IN) | payer OTHER ==
[~2017-10-25] VITALS: Ht 144.8 cm; Wt 70.3 kg
[~2017-10-25 22:00] MED LIST changes: +ASPIR-LOW81 MG PO; +HUMALOG100 UNIT/1 SC; +LOSARTAN POTASS25 MG PO; +PROVENTIL,2.5 MG/0.5 IH
[2017-10-25 22:39] LABS: HEMATOCRIT 33.2 % (36.0-46.0); HEMOGLOBIN 10.9 G/DL (11.9-15.5); MCH 26.3 PG (29.0-34.0); MCHC 32.8 G/DL (30.0-36.0); PLATELET COUNT 294 K/uL (156-360); RBC DIS.WIDTH-SD 61.5 % (39-53); RED BLOOD COUNT 4.15 M/uL (3.80-5.20); WHITE BLOOD COUNT 10.8 K/uL (4.1-10.2)
[2017-10-25 22:59] LABS: CHLORIDE 103 MEQ/L (99-109); POTASSIUM 3.8 MEQ/L (3.7-5.4); SODIUM 135 MEQ/L (136-147)
[2017-10-25 23:04] LABS: CREATININE 1.3 MG/DL (0.6-1.3); GFR ESTIMATE (CALCULATED) 44 mL/min/; GLUCOSE 359 mg/dL (70-99); UREA NITROGEN (BUN) 30 mg/dL (9-23)
[2017-10-26 03:19] LABS: HEMATOCRIT 31.3 % (36.0-46.0); MCH 25.8 PG (29.0-34.0); MCHC 31.9 G/DL (30.0-36.0); MCV 80.9 FL (83-99); PLATELET COUNT 250 K/uL (156-360); RBC DIS.WIDTH-CV 20.7 % (11.8-14.6); RBC DIS.WIDTH-SD 61.3 % (39-53); RED BLOOD COUNT 3.87 M/uL (3.80-5.20); WHITE BLOOD COUNT 8.5 K/uL (4.1-10.2)
[2017-10-26 03:28] LABS: CHLORIDE 105 mEq/L (99-109); POTASSIUM 3.5 mEq/L (3.7-5.4); SODIUM 138 mEq/L (136-147)
[2017-10-26 03:30] LABS: GLUCOSE 350 mg/dL (70-99)
[2017-10-26 03:34] LABS: CREATININE 1.4 mg/dL (0.6-1.3); GFR ESTIMATE (CALCULATED) 40 mL/min/; UREA NITROGEN (BUN) 30 mg/dL (9-23)
[2017-10-26 04:02] LABS: TROP-I INTERPRETATION NEGATIVE; TROPONIN-I 0.01 ng/mL (0.0-0.30)
[2017-10-26 06:40] LABS: TROP-I INTERPRETATION NEGATIVE; TROPONIN-I 0.03 ng/mL (0.0-0.30)
[2017-10-26 07:50] LABS: HEMATOCRIT 31.5 % (36.0-46.0); HEMOGLOBIN 10.3 G/DL (11.9-15.5); MCV 80.2 FL (83-99)
[2017-10-26 09:00] VITALS: BP 133/60
[2017-10-26] MEDS ORDERED: LOSARTAN POTASS25 MG PO (11:11)
[2017-10-26] MEDS ORDERED: ENTRESTO 24 MG1 EACH PO (11:11)
[2017-10-26 11:48] VITALS: BP 137/62
[2017-10-26 12:29] LABS: HEMATOCRIT 32.8 % (36.0-46.0); HEMOGLOBIN 10.3 G/DL (11.9-15.5); MCH 25.6 PG (29.0-34.0); MCHC 31.4 G/DL (30.0-36.0); MCV 81.4 FL (83-99); PLATELET COUNT 254 K/uL (156-360); RBC DIS.WIDTH-CV 20.6 % (11.8-14.6); RBC DIS.WIDTH-SD 61.9 % (39-53); RED BLOOD COUNT 4.03 M/uL (3.80-5.20); WHITE BLOOD COUNT 7.4 K/uL (4.1-10.2)
[2017-10-26 12:43] LABS: INTER. NORMALIZED RATIO 1.1
[2017-10-26 12:45] LABS: PTT 27.6 SEC (25-37)
[2017-10-26 12:52] LABS: TROP-I INTERPRETATION NEGATIVE; TROPONIN-I 0.02 ng/mL (0.0-0.30)
[2017-10-26 15:51] LABS: HEMATOCRIT 31.7 % (36.0-46.0); MCV 80.7 FL (83-99)
[2017-10-26 17:48] VITALS: BP 124/59
[2017-10-26 19:10] VITALS: BP 1285/66
[2017-10-26 19:22] LABS: FERRITIN 41 NG/ML (10-291)
[2017-10-26 21:53] LABS: IRON 17 MCG/DL (35-150); TRANSFERRIN (TIBC) 279.1 mg/dL (215-380); TRANSFERRIN SATUR. 6 % (20-55)
[2017-10-26 23:00] VITALS: BP 131/62
[2017-10-26 23:27] LABS: HEMATOCRIT 30.1 % (36.0-46.0); HEMOGLOBIN 9.8 G/DL (11.9-15.5); MCH 26.1 PG (29.0-34.0); MCHC 32.6 G/DL (30.0-36.0); MCV 80.3 FL (83-99); PLATELET COUNT 244 K/uL (156-360); RBC DIS.WIDTH-CV 20.6 % (11.8-14.6); RBC DIS.WIDTH-SD 60.3 % (39-53); RED BLOOD COUNT 3.75 M/uL (3.80-5.20); WHITE BLOOD COUNT 6.8 K/uL (4.1-10.2)
[2017-10-27 04:55] VITALS: BP 116/65
[2017-10-27 06:22] LABS: ALBUMIN 2.9 G/DL (3.2-4.8); ALKALINE PHOSPHATASE 59 IU/L (3-129); ALT (GPT) 7 IU/L (3-49); AST (GOT) 8 IU/L (2-34); CHLORIDE 108 MEQ/L (99-109); GFR ESTIMATE (CALCULATED) > 59 mL/min/; GLUCOSE 208 mg/dL (70-99); POTASSIUM 3.5 MEQ/L (3.7-5.4); SODIUM 140 MEQ/L (136-147); TOTAL BILIRUBIN 0.2 MG/DL (0.0-1.0); TOTAL PROTEIN 5.3 G/DL (6.4-8.3)
[2017-10-27 06:23] LABS: CREATININE 0.8 MG/DL (0.6-1.3); UREA NITROGEN (BUN) 9 mg/dL (9-23)
[2017-10-27 08:26] VITALS: BP 113/65
[2017-10-27 12:08] VITALS: BP 130/62
[2017-10-27 12:45] LABS: HEMATOCRIT 33.3 % (36.0-46.0); HEMOGLOBIN 10.3 G/DL (11.9-15.5); MCV 81.6 FL (83-99)
[2017-10-27 16:49] VITALS: BP 139/61
[2017-10-27 20:57] VITALS: BP 147/67
[2017-10-27 22:26] VITALS: BP 140/65
[2017-10-27 22:51] LABS: HEMATOCRIT 31.8 % (36.0-46.0); HEMOGLOBIN 10.1 G/DL (11.9-15.5); MCH 25.8 PG (29.0-34.0); MCHC 31.8 G/DL (30.0-36.0); MCV 81.1 FL (83-99); PLATELET COUNT 265 K/uL (156-360); RBC DIS.WIDTH-CV 20.8 % (11.8-14.6); RBC DIS.WIDTH-SD 61.2 % (39-53); RED BLOOD COUNT 3.92 M/uL (3.80-5.20); WHITE BLOOD COUNT 7.6 K/uL (4.1-10.2)
[2017-10-28 03:25] VITALS: BP 136/60
[2017-10-28 05:56] LABS: HEMOGLOBIN 9.4 G/DL (11.9-15.5); MCH 25.5 PG (29.0-34.0); MCHC 31.3 G/DL (30.0-36.0); MCV 81.3 FL (83-99); PLATELET COUNT 244 K/uL (156-360); RBC DIS.WIDTH-CV 20.6 % (11.8-14.6); RBC DIS.WIDTH-SD 61.1 % (39-53); RED BLOOD COUNT 3.69 M/uL (3.80-5.20); WHITE BLOOD COUNT 6.5 K/uL (4.1-10.2)
[2017-10-28 06:20] LABS: CHLORIDE 111 MEQ/L (99-109); CREATININE 0.7 MG/DL (0.6-1.3); GFR ESTIMATE (CALCULATED) > 59 mL/min/; POTASSIUM 3.9 MEQ/L (3.7-5.4); SODIUM 144 MEQ/L (136-147); UREA NITROGEN (BUN) 4 mg/dL (9-23)
[2017-10-28 06:23] LABS: BASOPHIL (%) 0.3 % (0-1); EOSINOPHIL (%) 6.2 % (0-5); EOSINOPHIL COUNT 0.4 K/uL (0-0.3); IMMATURE GRANULOCYTE (%) 0.2 % (0.0-0.7); LYMPHOCYTE (%) 31.9 % (15-42); LYMPHOCYTE COUNT 2.1 K/uL (1.0-2.8); MONOCYTE (%) 9.4 % (3-12); MONOCYTE COUNT 0.6 K/uL (0-0.8); NEUTROPHIL COUNT 3.4 K/uL (1.8-6.4)
[2017-10-28 06:26] LABS: GLUCOSE 83 mg/dL (70-99)
[2017-10-28 07:29] VITALS: BP 129/56
[2017-10-28 11:45] VITALS: BP 131/58
[2017-10-28] MEDS ORDERED: FERROUS SULFAT325 MG PO (15:15)
[2017-10-28] MEDS ORDERED: CORDARONE200 MG PO (15:16)
[2017-10-28] MEDS ORDERED: PANTOPRAZOLE SO40 MG PO (15:24)
== END 2017-10-28 16:56 | disposition home health service (06) | DRG 378 ==
LOC: EME 22:00 → 4EAST 10-26 04:45 → EDOF 10-26 04:45 → ENRESERV 10-26 04:47 → 4EAST 10-26 07:58
PROVIDERS: Emergency Medicine; Hospitalist; Internal Medicine; Internal Medicine Gastroenterology; Specialist; Student in an Organized Health Care Education/Training Program
PROC: 0D598ZZ Destruction of Duodenum, Via Natural or Artificial Opening Endoscopic (ICD-10-PCS; principal; 2017-10-27)
DX: K92.2 Gastrointestinal hemorrhage, unspecified (principal); I47.2 Ventricular tachycardia; I69.351 Hemiplegia and hemiparesis following cerebral infarction affecting right dominant side; E11.22 Type 2 diabetes mellitus with diabetic chronic kidney disease; E11.65 Type 2 diabetes mellitus with hyperglycemia; E86.0 Dehydration; E11.51 Type 2 diabetes mellitus with diabetic peripheral angiopathy without gangrene; I25.10 Atherosclerotic heart disease of native coronary artery without angina pectoris; I25.2 Old myocardial infarction; J44.9 Chronic obstructive pulmonary disease, unspecified; K22.70 Barrett's esophagus without dysplasia; I12.9 Hypertensive chronic kidney disease with stage 1 through stage 4 chronic kidney disease, or unspecified chronic kidney disease; N18.9 Chronic kidney disease, unspecified; K29.80 Duodenitis without bleeding; K29.70 Gastritis, unspecified, without bleeding; K55.20 Angiodysplasia of colon without hemorrhage; I25.5 Ischemic cardiomyopathy; Z95.1 Presence of aortocoronary bypass graft; E87.6 Hypokalemia; Z79.82 Long term (current) use of aspirin; E78.5 Hyperlipidemia, unspecified; E78.00 Pure hypercholesterolemia, unspecified; D64.9 Anemia, unspecified; Z87.891 Personal history of nicotine dependence
CPT/HCPCS: 74176; 80048; 80053; 82330; 82728; 82948; 83540; 84466; 84484; 85014; 85018; 85025; 85027; 85610; 85730; 86850; 86900; 86901; 86920; 93005; 94640; 94760; 94799; 99281; 99285; C9113; J0282; J1815; J7030; J7042